=== PATIENT | female | born 1995 | race Two or more races ===

== ENCOUNTER 2017-01-09 23:41 | Emergency (ER) | payer SELFPAY ==
[~2017-01-09] VITALS: Ht 162.6 cm; Wt 52.6 kg
--- NOTE | 2017-01-09 23:50 | NUR ---
STARTED A SALINE LOCK ON THE LFA G18, BLOOD DRAWN AND SENT TO LAB.
--- NOTE | 2017-01-10 | NUR ---
To bed 5 a 21 yo female bbra; per ems pt took unknown amount of aderal and alcohol. Upon arrival to er, patient is alert oriented x1, restless, crying. Sinus tachy on the monitor, vss. Nondiaphoretic. Ongoing cardiac and vs monitoring. Safety measures observed. Dr Rodriguez at bedside for eval.
[2017-01-10 00:07] LABS: BASOPHILS % (AUTO) 0.6 % (0.0-2.0); EOSINOPHILS # (AUTO) 0.1 /CMM (0.0-0.7); EOSINOPHILS % (AUTO) 2.3 % (0.0-6.0); HEMATOCRIT 43 % (33-45); HEMOGLOBIN 14.5 g/dL (11.5-14.8); LYMPHOCYTES # (AUTO) 2.5 /CMM (0.8-4.8); LYMPHOCYTES % (AUTO) 46.2 % (20.0-44.0); MEAN CORPUSCULAR HEMOGLOBIN 32 PG (26.0-33.0); MEAN CORPUSCULAR HGB CONC 34 g/dl (31.0-36.0); MEAN CORPUSCULAR VOLUME 94 fL (82-100); MONOCYTES # (AUTO) 0.3 /CMM (0.1-1.30); MONOCYTES % (AUTO) 6.1 % (2.0-12.0); NEUTROPHILS # (AUTO) 2.4 /CMM (1.8-8.9); NEUTROPHILS % (AUTO) 44.8 % (43.0-81.0); PLATELET COUNT (AUTO) 327 /CMM (150-450); RED BLOOD CELL COUNT(AUTO) 4.54 MIL/uL (4.0-5.2); WHITE BLOOD COUNT (AUTO) 5.4 K/uL (4.3-11.0)
--- NOTE | 2017-01-10 00:22 | NUR ---
[facility] AT BEDSIDE.
[2017-01-10 00:28] LABS: ALBUMIN 4.2 g/dL (3.4-5.0); BILIRUBIN,DIRECT 0.1 mg/dL (0.0-0.2); BILIRUBIN,TOTAL 0.3 mg/dL (0.2-1.0); CALCIUM, SERUM 8.6 mg/dL (8.5-10.1); CREATININE 0.8 mg/dL (0.6-1.3); POTASSIUM 3.4 mmol/L (3.5-5.1); TOTAL PROTEIN, SERUM 7.8 g/dL (6.4-8.2)
[2017-01-10 00:33] LABS: APPEARANCE,URINE CLEAR (CLEAR); BILIRUBIN,URINE NEGATIVE (NEGATIVE); BLOOD, URINE NEGATIVE Ery/uL (NEGATIVE); COLOR,URINE YELLOW (YELLOW); KETONES,URINE NEGATIVE (NEGATIVE); LEUKOCYTE ESTERASE ,URINE NEGATIVE (NEGATIVE); NITRITE, URINE NEGATIVE (NEGATIVE); PROTEIN,URINE NEGATIVE (NEGATIVE); UGLUCOSE NEGATIVE (NEGATIVE); UROBILINOGEN,URINE 0.2 EU/dL (0.2)
[2017-01-10 00:43] LABS: SALICYLATE 2.1 mg/dL (2.8-20.0)
--- NOTE | 2017-01-10 02:00 | NUR ---
Patient verbalized that she is now sober, and said "I am sorry for being so awful to you all, I was just drunk. I dont have plans to hurt myself."
--- NOTE | 2017-01-10 02:05 | NUR ---
VSS. IV removed. Catheter intact and site benign. Pressure and 4x4 applied to site. No bleeding noted. Patient discharged to home in stable condition. Written and verbal after care instructions given. Patient verbalizes understanding of instruction. Patient is ambulatory with steady gait, accompanied by cousin. Instructed not to drive.
[2017-01-10 02:06] VITALS: BP 118/98
== END 2017-01-10 02:07 | disposition home or self-care (01) ==
LOC: ER 23:43 → EDBD 23:43 → ER 01-10 02:07
DX: F10.129 Alcohol abuse with intoxication, unspecified (principal); R45.851 Suicidal ideations; F17.200 Nicotine dependence, unspecified, uncomplicated
CPT/HCPCS: 36415; 80048; 80076; 80305; 80329; 81001; 84703 ×2; 85025; 93005; 99285; A4606 ×2; G0480 ×2; Z7610 ×2; 81000-TC

== ENCOUNTER 2020-09-19 05:35 | Emergency (ER) | payer SELFPAY ==
[~2020-09-19] VITALS: Ht 170.2 cm; Wt 49.0 kg
--- NOTE | 2020-09-19 06:09 | NUR ---
PT CAME TO THE ER C/O ABD PAIN +N/V. LAST DRINK OF ALCOHOL X 2 DAYS AGO. PT AAOX4, VSS, RESPIRATIONS EVEN AND UNLABORED ON RA W/ NAD NOTED. PT CONNECTED TO THE MONITOR AND POX.
[2020-09-19] MEDS ORDERED: ONDANSETRON HCL/PF 4 MG/2 ML VIAL ONE ×2 (06:19→07:10)
[2020-09-19] MEDS ORDERED: ONDANSETRON HCL/PF 4 MG/2 ML VIAL IVP ONE (06:30)
[2020-09-19] MEDS ORDERED: IV NS 0.9% 1,000 ML BAG IV ONE (06:30)
[2020-09-19] MEDS ORDERED: METOCLOPRAMIDE HCL 10 MG/2 ML VIAL ONE (06:33)
[2020-09-19 06:37] LABS: BASOPHILS # (AUTO) 0.1 /CMM (0.0-0.2); BASOPHILS % (AUTO) 0.5 % (0.0-2.0); HEMATOCRIT 46 % (33-45); HEMOGLOBIN 15.3 g/dL (11.5-14.8); LYMPHOCYTES # (AUTO) 0.9 /CMM (0.8-4.8); LYMPHOCYTES % (AUTO) 4.2 % (20.0-44.0); MEAN CORPUSCULAR HGB CONC 34 g/dl (31.0-36.0); MEAN CORPUSCULAR VOLUME 95 fL (82-100); MONOCYTES # (AUTO) 1.1 /CMM (0.1-1.30); MONOCYTES % (AUTO) 5.5 % (2.0-12.0); NEUTROPHILS % (AUTO) 89.8 % (43.0-81.0); PLATELET COUNT (AUTO) 402 /CMM (150-450); RED BLOOD CELL COUNT(AUTO) 4.78 MIL/uL (4.0-5.2)
[2020-09-19 06:57] LABS: ALBUMIN 5.1 g/dL (3.4-5.0); BILIRUBIN,DIRECT 0.2 mg/dL (0.0-0.2); CALCIUM, SERUM 10.6 mg/dL (8.5-10.1); CREATININE 0.9 mg/dL (0.6-1.3); POTASSIUM 3.6 mmol/L (3.5-5.1)
[2020-09-19] MEDS ORDERED: METOCLOPRAMIDE HCL 10 MG/2 ML VIAL IV ONE (07:00)
[2020-09-19] MEDS ORDERED: FAMOTIDINE/PF INJ 20 MG/2 ML VIAL IV ONE ×2 (07:10→07:30)
[2020-09-19] MEDS ORDERED: HALOPERIDOL LACTATE INJ 5 MG/ML VIAL ONE (07:11)
--- NOTE | 2020-09-19 07:19 | NUR ---
REPORT GIVEN ESVIN RN FOR LIBORIO
--- NOTE | 2020-09-19 07:21 | NUR ---
RECEIVED THE PATIENT IN ER BED #10. PATIENT SLEEPING, RESPONSIVE TO VERBAL STIMULI. PATIENT IN NO APPARENT DISTRESS. WILL CONTINUE TO MONITOR.
[2020-09-19] MEDS ORDERED: HALOPERIDOL LACTATE INJ 5 MG/ML VIAL IV ONE (07:30)
[2020-09-19] MEDS ORDERED: ONDANSETRON HCL/PF - ER 4 MG/2 ML VIAL IV ONE (07:30)
[2020-09-19] MEDS ORDERED: LORAZEPAM INJ 2 MG/ML VIAL IV ONE (09:30)
[2020-09-19] MEDS ORDERED: LORAZEPAM INJ 2 MG/ML VIAL ONE (09:35)
[2020-09-19] MEDS ORDERED: IOHEXOL-300 100 ML VIAL IV ONE (09:36)
[2020-09-19] MEDS ORDERED: IV NS 0.9% 250 ML IV ONE (09:37)
[2020-09-19] MEDS ORDERED: CT SWABBABLE VALVE TRANS SET 1 EA INFUS.SET MC ONE (09:37)
--- NOTE | 2020-09-19 09:42 | NUR ---
The patient taken to for CT scan.
--- NOTE | 2020-09-19 09:45 | NUR ---
CALLED [facility] FOR [facility]. NO CALL BACK.
--- NOTE | 2020-09-19 09:53 | NUR ---
THE PATIENT IS BACK FROM CT.
--- NOTE | 2020-09-19 10:14 | NUR ---
PAGED EPIC. NO ANSWER FROM DR. FATIMA
--- NOTE | 2020-09-19 10:29 | NUR ---
Covid swab done and taken it to the lab.
--- NOTE | 2020-09-19 11:53 | NUR ---
Patient discharged to home in stable condition. Written and verbal after care instructions given. Patient verbalizes understanding of instruction. The patient left ER in stable condition.
[2020-09-19 11:54] VITALS: BP 128/76
== END 2020-09-19 11:54 | disposition home or self-care (01) ==
LOC: ER 05:43
DX: R11.2 Nausea with vomiting, unspecified (principal); R10.13 Epigastric pain; Z91.013 Allergy to seafood; D72.829 Elevated white blood cell count, unspecified; E87.2 Acidosis; Z20.822 Contact with and (suspected) exposure to COVID-19
CPT/HCPCS: 36415; 74177; 80048; 80076; 83690; 84702; 85025; 87426; 96361; 96374; 96375; 96376; 99285; C9803; J1630; J2060; J2405 ×2; J2765; J3490; J7030; J7050; Q9967